=== PATIENT | female | born 1955 | race Caucasian/White ===

== ENCOUNTER 2020-12-05 21:01 | Emergency (ER) | payer MEDICARE, OTHER ==
[~2020-12-05] VITALS: Ht 167.6 cm; Wt 63.5 kg
--- NOTE | 2020-12-05 21:01 | NUR ---
Patient to ER bed 2 to gown for evaluation. Side rails up.
[2020-12-05 21:25] VITALS: BP_SYST 143
--- NOTE | 2020-12-05 21:28 | NUR ---
Dr. Rojas bedside for pt eval
[2020-12-05] MEDS ORDERED: HYDROcodone/ACETAMIN 5-325 MG TAB (NORCO/ VICODIN) PO ONE (21:30)
[2020-12-05] MEDS ORDERED: IBUPROFEN 800 MG TABLET PO ONE (21:30)
--- NOTE | 2020-12-05 21:30 | NUR ---
Pt BIB family to ED a puncture wound to the left big toe today. The patient reports she was doing yard work when she dropped her knife. States the knife cut through her plastic sandal onto her left big toe. Otherwise, denies fever, chills, numbness, weakness, or any other complaints.
[2020-12-05] MEDS ORDERED: DIPH-TET-PERTUS Vaccine 0.5 ML VIAL (ADACEL) I.M. ONE (21:45)
[2020-12-05] MEDS ORDERED: HYDR-3917 PO (21:56)
[2020-12-05] MEDS ORDERED: AMOX-423 PO (21:56)
[2020-12-05] MEDS ORDERED: BACITRACIN 1 GM OINT TP ONE (22:15)
[2020-12-05] MEDS ORDERED: AMOXICILLIN/CLAVULANATE POTASSIUM 500 MG TABLET PO ONE (22:15)
[2020-12-05 22:47] VITALS: BP_SYST 128
--- NOTE | 2020-12-05 22:47 | NUR ---
Patient given written and verbal discharge instructions and verbalizes understanding. ER MD discussed with patient the results and treatment provided. Patient in stable condition. ID arm band removed. Rx of Amoxicillin and [place] given. Patient educated on pain management and to follow up with PMD. Pain Scale 0/10 Opportunity for questions provided and answered. Medication side effect fact sheet provided.
== END 2020-12-05 22:47 | disposition home or self-care (01) ==
LOC: SED 21:01
DX: S91.132A Puncture wound without foreign body of left great toe without damage to nail, initial encounter (principal); E11.9 Type 2 diabetes mellitus without complications; Z88.5 Allergy status to narcotic agent; Z79.899 Other long term (current) drug therapy; W26.0XXA Contact with knife, initial encounter; Y93.89 Activity, other specified; Y92.89 Other specified places as the place of occurrence of the external cause; Y99.8 Other external cause status
CPT/HCPCS: 90715; 99284

== ENCOUNTER 2022-06-05 18:13 | Emergency (ER) | payer MEDICARE ==
[~2022-06-05] VITALS: Ht 165.1 cm; Wt 62.6 kg
[~2022-06-05 18:13] MED LIST: AMOX-423 PO; HYDR-3917 PO
[2022-06-05 18:19] VITALS: BP_SYST 122
[2022-06-05 18:42] LABS: BILIRUBIN,URINE NEGATIVE (NEGATIVE); CLARITY/URINE CLEAR (CLEAR); COLOR,URINE YELLOW (YELLOW); GLUCOSE,URINE 3+ (NEGATIVE); KETONES,URINE TRACE (NEGATIVE); LEUKOCYTE ESTERASE ,URINE NEGATIVE (NEGATIVE); NITRITE, URINE POSITIVE (NEGATIVE); PROTEIN URINE NEGATIVE (NEGATIVE); UROBILINOGEN,URINE 0.2 (0.2-1.0)
[2022-06-05 18:49] LABS: BLOOD, URINE TRACE (NEGATIVE)
[2022-06-05 18:54] LABS: BACTERIA,URINE MODERATE /HPF (None Seen); MUCUS,URINE None Seen /LPF (None Seen); RBC,URINE 0-3 /HPF (0-3); WBC,URINE 20-50 /HPF (0-3)
[2022-06-05] MEDS ORDERED: MECLIZINE HCL 25 MG TABLET (ANITVERT) PO ONE (19:00)
[2022-06-05] MEDS ORDERED: METOCLOPRAMIDE HCL 10 MG/2 ML VIAL IVP ONE (19:00)
[2022-06-05 19:26] LABS: BASOPHILS % (AUTO) 0.3 % (0.0-2.0); HEMATOCRIT 37.1 % (36-48); HEMOGLOBIN 12.6 g/dL (12.0-16.0); LYMPHOCYTES # (AUTO) 1.3 K/uL (1.0-5.5); LYMPHOCYTES % (AUTO) 9.1 % (20.5-51.5); MEAN CORPUSCULAR HEMOGLOBIN 31 pg (27-31); MEAN CORPUSCULAR HGB CONC 34 % (32-36); MEAN CORPUSCULAR VOLUME 90 fL (79.0-98.0); MONOCYTES % (AUTO) 6.6 % (1.7-9.3); NEUTROPHILS # (AUTO) 12.1 K/uL (1.8-7.7); PLATELET COUNT (AUTO) 242 K/uL (130-430); RED BLOOD CELL COUNT(AUTO) 4.13 MIL/uL (4.2-6.2); RED CELL DISTRIBUTION WIDTH 13.6 % (9.0-15.0); WHITE BLOOD COUNT (AUTO) 14.4 K/uL (4.8-10.8)
[2022-06-05 19:59] LABS: ANION GAP 12 (5-15); CALCIUM 9.2 mg/dL (8.4-11.0); CHLORIDE 93 mmol/L (98-107); CREATININE 0.82 mg/dL (0.55-1.30); GLUCOSE 181 mg/dL (70-99); UREA NITROGEN, BLOOD 10 mg/dL (8-21)
[2022-06-05 20:03] LABS: GFR AFRICAN AMERICAN 89 mL/min (>90)
[2022-06-05 20:07] LABS: ALANINE AMINOTRANSFERASE 20 U/L (12-78); ALBUMIN 3.4 g/dL (3.4-4.8); ASPARTATE AMINOTRANSFERASE 20 U/L (10-37); TOTAL BILIRUBIN 0.8 mg/dL (0.0-1.0)
[2022-06-05] MEDS ORDERED: IBUP-1969 PO (21:10)
[2022-06-05] MEDS ORDERED: MECL-261 PO (21:10)
[2022-06-05] MEDS ORDERED: NITR-85 PO (21:10)
[2022-06-05] MEDS ORDERED: cefTRIAXone 1 GM in D5W 50 ML IV ONE (21:15)
[2022-06-05] MEDS ORDERED: cefTRIAXone 1 GM VIAL ONE (21:18)
[2022-06-05 21:26] VITALS: BP_SYST 118
== END 2022-06-05 21:26 | disposition home or self-care (01) ==
LOC: SED 18:13
DX: N39.0 Urinary tract infection, site not specified (principal); R42 Dizziness and giddiness; R11.2 Nausea with vomiting, unspecified; E11.9 Type 2 diabetes mellitus without complications; I10 Essential (primary) hypertension; E78.5 Hyperlipidemia, unspecified; Z88.5 Allergy status to narcotic agent; Z79.899 Other long term (current) drug therapy
CPT/HCPCS: 99285; 96374; 70450; 71045; 80053; 81000; 85025; 87086; 84484; 36415; 93005; 76376; J8597; J0696; J2765

== ENCOUNTER 2022-10-25 14:50 | Inpatient (IN) | payer MEDICARE ==
[~2022-10-25] VITALS: Ht 167.6 cm; Wt 63.0 kg
[~2022-10-25 14:50] MED LIST changes: +IBUP-1969 PO; +MECL-261 PO; +NITR-85 PO
[2022-10-25 15:13] VITALS: BP_SYST 133
[2022-10-25 15:33] LABS: BILIRUBIN,URINE NEGATIVE (NEGATIVE); COLOR,URINE YELLOW (YELLOW); GLUCOSE,URINE 3+ (NEGATIVE); KETONES,URINE 1+ (NEGATIVE); NITRITE, URINE POSITIVE (NEGATIVE); PROTEIN URINE NEGATIVE (NEGATIVE); UROBILINOGEN,URINE 0.2 (0.2-1.0)
[2022-10-25 15:36] LABS: BASOPHILS # (AUTO) 0.1 K/uL (0.0-0.2); BASOPHILS % (AUTO) 0.3 % (0.0-2.0); HEMATOCRIT 37.9 % (36-48); HEMOGLOBIN 12.9 g/dL (12.0-16.0); LYMPHOCYTES # (AUTO) 1.2 K/uL (1.0-5.5); LYMPHOCYTES % (AUTO) 6.5 % (20.5-51.5); MEAN CORPUSCULAR HEMOGLOBIN 31 pg (27-31); MEAN CORPUSCULAR HGB CONC 34 % (32-36); MEAN CORPUSCULAR VOLUME 91 fL (79.0-98.0); MONOCYTES # (AUTO) 1.3 K/uL (0.0-1.0); MONOCYTES % (AUTO) 6.9 % (1.7-9.3); NEUTROPHILS # (AUTO) 16.7 K/uL (1.8-7.7); NEUTROPHILS % (AUTO) 86.3 % (40.0-70.0); PLATELET COUNT (AUTO) 213 K/uL (130-430); RED BLOOD CELL COUNT(AUTO) 4.18 MIL/uL (4.2-6.2); RED CELL DISTRIBUTION WIDTH 14.2 % (9.0-15.0); WHITE BLOOD COUNT (AUTO) 19.3 K/uL (4.8-10.8)
[2022-10-25 15:42] LABS: BLOOD, URINE TRACE (NEGATIVE); CLARITY/URINE HAZY (CLEAR); LEUKOCYTE ESTERASE ,URINE 2+ (NEGATIVE)
[2022-10-25 15:43] LABS: BACTERIA,URINE FEW /HPF (None Seen); MUCUS,URINE None Seen /LPF (None Seen); RBC,URINE 0-3 /HPF (0-3)
[2022-10-25 15:44] LABS: WBC,URINE 20-50 /HPF (0-3)
[2022-10-25 16:03] LABS: ALBUMIN 3.4 g/dL (3.4-4.8); CALCIUM 8.7 mg/dL (8.4-11.0); CREATININE 1.2 mg/dL (0.55-1.30); TOTAL BILIRUBIN 0.9 mg/dL (0.0-1.0)
[2022-10-25 16:11] LABS: C-REACTIVE PROTEIN QUANT 24.1 mg/dL (0-0.5)
[2022-10-25] MEDS ORDERED: INSULIN REGULAR, HUMAN 10 UNITS/0.1 ML, 3 ML VIAL IVP ONE (16:15)
[2022-10-25] MEDS ORDERED: NACL 0.9% 1,000 ML IV ONE (16:15)
[2022-10-25] MEDS ORDERED: cefTRIAXone 1 GM in D5W 50 ML IV ONE (16:15)
[2022-10-25] MEDS ORDERED: cefTRIAXone 1 GM VIAL ONE (16:19)
[2022-10-25] MEDS ORDERED: NACL 0.9% 2,000 ML IV ONE (16:30)
[2022-10-25] MEDS ORDERED: INSULIN REGULAR, HUMAN 100 UNITS/ML, 3 ML VIAL SUBCUT ONE (16:30)
[2022-10-25] MEDS ORDERED: EMPA25TA PO (17:43)
[2022-10-25] MEDS ORDERED: SEMA3TAB4 PO (17:43)
[2022-10-25] MEDS ORDERED: METF-381 PO (17:43)
[2022-10-25] MEDS ORDERED: GLIP10TA11 PO (17:43)
[2022-10-25] MEDS ORDERED: PIPERACILLIN/TAZO 3.375/DEX-IS 50 ML IV ONE (18:00)
[2022-10-25] MEDS ORDERED: PIPERACILLIN/TAZOBACTAM 3.375 GM/VIAL (ZOSYN) IV ONE (18:07)
[2022-10-25 18:42] VITALS: BP_SYST 136
[2022-10-25 20:00] VITALS: BP_SYST 132
[2022-10-25] MEDS: ACETAMINOPHEN 325 MG TABLET PO PRN (20:23)
[2022-10-25] MEDS ORDERED: IBUPROFEN 600 MG TABLET PO PRN (22:15)
[2022-10-25] MEDS ORDERED: NALOXONE HCL 0.4 MG/ML AMP (NARCAN) IVP PRN (22:15)
[2022-10-25] MEDS ORDERED: HYDROcodone/ACETAMIN 5-325 MG TAB (NORCO/ VICODIN) PO PRN (22:15)
[2022-10-25] MEDS ORDERED: ONDANSETRON HCL 4 MG/2 ML VIAL IVP PRN (22:30)
[2022-10-25] MEDS: NACL 0.9% 1,000 ML IV SCH (22:49)
[2022-10-26] MEDS ORDERED: PIPERACILLIN/TAZO 3.375/DEX-IS 50 ML IV SCH
[2022-10-26 00:28] VITALS: BP_SYST 109
[2022-10-26] MEDS: PIPERACILLIN/TAZO 3.375 GM in NS 50 ML IV SCH ×4 (00:34→19:01)
[2022-10-26] MEDS: ACETAMINOPHEN 325 MG TABLET PO PRN ×2 (00:50→06:57)
[2022-10-26 06:06] LABS: BASOPHILS # (AUTO) 0.1 K/uL (0.0-0.2); BASOPHILS % (AUTO) 0.4 % (0.0-2.0); EOSINOPHILS % (AUTO) 0.1 % (0.0-4.0); HEMATOCRIT 37.1 % (36-48); HEMOGLOBIN 12.4 g/dL (12.0-16.0); MEAN CORPUSCULAR HEMOGLOBIN 30 pg (27-31); MEAN CORPUSCULAR HGB CONC 34 % (32-36); MEAN CORPUSCULAR VOLUME 91 fL (79.0-98.0); MONOCYTES # (AUTO) 1.2 K/uL (0.0-1.0); MONOCYTES % (AUTO) 6.6 % (1.7-9.3); NEUTROPHILS % (AUTO) 81.9 % (40.0-70.0); PLATELET COUNT (AUTO) 200 K/uL (130-430); RED BLOOD CELL COUNT(AUTO) 4.08 MIL/uL (4.2-6.2); RED CELL DISTRIBUTION WIDTH 13.8 % (9.0-15.0); WHITE BLOOD COUNT (AUTO) 18.4 K/uL (4.8-10.8)
[2022-10-26 06:27] LABS: CALCIUM 8.3 mg/dL (8.4-11.0); CREATININE 0.91 mg/dL (0.55-1.30); THYROID STIMULATING HORMONE 0.81 uIu/mL (0.34-4.82); TOTAL BILIRUBIN 0.7 mg/dL (0.0-1.0)
[2022-10-26 08:10] VITALS: BP_SYST 97
[2022-10-26] MEDS: NACL 0.9% 1,000 ML IV SCH ×2 (08:26→18:52)
[2022-10-26] MEDS: metFORMIN HCL 500 MG TABLET PO SCH ×2 (08:26→18:53)
[2022-10-26] MEDS: traMADol HCL HCL 50 MG TABLET (ULTRAM) PO PRN ×2 (09:14→18:53)
[2022-10-26] MEDS: EMPAGLIFLOZIN 10 MG TABLET PO SCH (11:50)
[2022-10-26] MEDS: INSULIN REGULAR, HUMAN 100 UNITS/ML, 3 ML VIAL (humuLIN R) SUBCUT PRN ×3 (11:59→22:02)
[2022-10-26 12:00] VITALS: BP_SYST 125
[2022-10-26] MEDS ORDERED: GENTAMICIN IN NACL, ISO-OSM 100 ML IV ONE (13:00)
[2022-10-27] MEDS: PIPERACILLIN/TAZO 3.375 GM in NS 50 ML IV SCH ×5 (01:02→23:16)
[2022-10-27 01:54] VITALS: BP_SYST 116
[2022-10-27] MEDS: NACL 0.9% 1,000 ML IV SCH ×2 (04:30→15:22)
[2022-10-27] MEDS: traMADol HCL HCL 50 MG TABLET (ULTRAM) PO PRN ×3 (05:42→20:53)
[2022-10-27 06:01] LABS: BASOPHILS % (AUTO) 0.2 % (0.0-2.0); EOSINOPHILS % (AUTO) 0.4 % (0.0-4.0); HEMATOCRIT 33.5 % (36-48); HEMOGLOBIN 11.6 g/dL (12.0-16.0); LYMPHOCYTES # (AUTO) 1.9 K/uL (1.0-5.5); LYMPHOCYTES % (AUTO) 17.6 % (20.5-51.5); MEAN CORPUSCULAR HEMOGLOBIN 31 pg (27-31); MEAN CORPUSCULAR HGB CONC 35 % (32-36); MEAN CORPUSCULAR VOLUME 90 fL (79.0-98.0); MONOCYTES # (AUTO) 0.8 K/uL (0.0-1.0); MONOCYTES % (AUTO) 7.8 % (1.7-9.3); PLATELET COUNT (AUTO) 203 K/uL (130-430); RED BLOOD CELL COUNT(AUTO) 3.71 MIL/uL (4.2-6.2); RED CELL DISTRIBUTION WIDTH 14.1 % (9.0-15.0); WHITE BLOOD COUNT (AUTO) 10.8 K/uL (4.8-10.8)
[2022-10-27 06:39] LABS: ALBUMIN 2.5 g/dL (3.4-4.8); CREATININE 0.75 mg/dL (0.55-1.30); TOTAL BILIRUBIN 0.5 mg/dL (0.0-1.0)
[2022-10-27 08:00] VITALS: BP_SYST 142
[2022-10-27] MEDS: EMPAGLIFLOZIN 10 MG TABLET PO SCH (09:51)
[2022-10-27] MEDS: metFORMIN HCL 500 MG TABLET PO SCH ×2 (09:52→17:05)
[2022-10-27 14:00] VITALS: BP_SYST 134
[2022-10-27 16:00] VITALS: BP_SYST 134
[2022-10-27] MEDS ORDERED: POTASSIUM CHLORIDE 20 MEQ TAB.PRT.SR PO ONE (17:15)
[2022-10-27 20:00] VITALS: BP_SYST 137
[2022-10-27] MEDS: INSULIN REGULAR, HUMAN 100 UNITS/ML, 3 ML VIAL (humuLIN R) SUBCUT PRN (20:19)
[2022-10-28 02:03] VITALS: BP_SYST 142
[2022-10-28] MEDS: PIPERACILLIN/TAZO 3.375 GM in NS 50 ML IV SCH ×5 (05:33→23:44)
[2022-10-28] MEDS: traMADol HCL HCL 50 MG TABLET (ULTRAM) PO PRN (05:48)
[2022-10-28 05:57] LABS: BASOPHILS % (AUTO) 0.6 % (0.0-2.0); EOSINOPHILS # (AUTO) 0.1 K/uL (0.0-0.4); HEMATOCRIT 33.7 % (36-48); HEMOGLOBIN 11.5 g/dL (12.0-16.0); LYMPHOCYTES # (AUTO) 1.4 K/uL (1.0-5.5); LYMPHOCYTES % (AUTO) 23.4 % (20.5-51.5); MEAN CORPUSCULAR HEMOGLOBIN 31 pg (27-31); MEAN CORPUSCULAR HGB CONC 34 % (32-36); MEAN CORPUSCULAR VOLUME 91 fL (79.0-98.0); MONOCYTES # (AUTO) 0.7 K/uL (0.0-1.0); MONOCYTES % (AUTO) 11.2 % (1.7-9.3); NEUTROPHILS # (AUTO) 3.9 K/uL (1.8-7.7); NEUTROPHILS % (AUTO) 63.8 % (40.0-70.0); PLATELET COUNT (AUTO) 222 K/uL (130-430); RED BLOOD CELL COUNT(AUTO) 3.72 MIL/uL (4.2-6.2); RED CELL DISTRIBUTION WIDTH 13.9 % (9.0-15.0)
[2022-10-28 06:17] LABS: CALCIUM 8.1 mg/dL (8.4-11.0); CREATININE 0.76 mg/dL (0.55-1.30)
[2022-10-28 06:54] LABS: ERYTHROCYTE SEDIMENTATION RATE 72 MM/HR (0-20)
[2022-10-28 08:00] VITALS: BP_SYST 131
[2022-10-28] MEDS: metFORMIN HCL 500 MG TABLET PO SCH ×2 (08:52→17:24)
[2022-10-28] MEDS: EMPAGLIFLOZIN 10 MG TABLET PO SCH (08:54)
[2022-10-28 12:00] VITALS: BP_SYST 131
[2022-10-28 16:30] VITALS: BP_SYST 136
[2022-10-28 20:00] VITALS: BP_SYST 136
[2022-10-28] MEDS: INSULIN REGULAR, HUMAN 100 UNITS/ML, 3 ML VIAL (humuLIN R) SUBCUT PRN (22:10)
[2022-10-29 01:56] VITALS: BP_SYST 110; BP_SYST 132
[2022-10-29] MEDS: PIPERACILLIN/TAZO 3.375 GM in NS 50 ML IV SCH ×4 (05:53→23:50)
[2022-10-29] MEDS: ACETAMINOPHEN 325 MG TABLET PO PRN (05:53)
[2022-10-29 07:51] VITALS: BP_SYST 115
[2022-10-29] MEDS: metFORMIN HCL 500 MG TABLET PO SCH ×2 (08:00→17:02)
[2022-10-29] MEDS: EMPAGLIFLOZIN 10 MG TABLET PO SCH (11:17)
[2022-10-29] MEDS: INSULIN REGULAR, HUMAN 100 UNITS/ML, 3 ML VIAL (humuLIN R) SUBCUT PRN ×3 (11:31→20:34)
[2022-10-29 13:04] VITALS: BP_SYST 122
[2022-10-29 15:07] LABS: HEPATITIS A AB, IgM Negative (Negative); HEPATITIS B CORE AB, IgM Negative (Negative); HEPATITIS B SURFACE AG Negative (Negative)
[2022-10-29 17:10] VITALS: BP_SYST 143
[2022-10-29 20:15] VITALS: BP_SYST 123
[2022-10-30 00:25] VITALS: BP_SYST 133
[2022-10-30 05:31] LABS: BASOPHILS % (AUTO) 0.5 % (0.0-2.0); EOSINOPHILS # (AUTO) 0.1 K/uL (0.0-0.4); EOSINOPHILS % (AUTO) 1.2 % (0.0-4.0); HEMOGLOBIN 12.3 g/dL (12.0-16.0); LYMPHOCYTES # (AUTO) 1.9 K/uL (1.0-5.5); LYMPHOCYTES % (AUTO) 30.1 % (20.5-51.5); MEAN CORPUSCULAR HEMOGLOBIN 31 pg (27-31); MEAN CORPUSCULAR HGB CONC 34 % (32-36); MEAN CORPUSCULAR VOLUME 90 fL (79.0-98.0); MONOCYTES # (AUTO) 0.7 K/uL (0.0-1.0); MONOCYTES % (AUTO) 11.4 % (1.7-9.3); NEUTROPHILS # (AUTO) 3.6 K/uL (1.8-7.7); NEUTROPHILS % (AUTO) 56.8 % (40.0-70.0); PLATELET COUNT (AUTO) 285 K/uL (130-430); RED BLOOD CELL COUNT(AUTO) 4.02 MIL/uL (4.2-6.2); RED CELL DISTRIBUTION WIDTH 14.1 % (9.0-15.0); WHITE BLOOD COUNT (AUTO) 6.3 K/uL (4.8-10.8)
[2022-10-30] MEDS: PIPERACILLIN/TAZO 3.375 GM in NS 50 ML IV SCH (05:53)
[2022-10-30 05:59] LABS: CREATININE 0.86 mg/dL (0.55-1.30)
[2022-10-30 08:00] VITALS: BP_SYST 139
[2022-10-30] MEDS: metFORMIN HCL 500 MG TABLET PO SCH ×2 (09:06→17:33)
[2022-10-30] MEDS: EMPAGLIFLOZIN 10 MG TABLET PO SCH (09:07)
[2022-10-30 12:00] VITALS: BP_SYST 141
[2022-10-30] MEDS: INSULIN REGULAR, HUMAN 100 UNITS/ML, 3 ML VIAL (humuLIN R) SUBCUT PRN ×2 (12:28→21:29)
[2022-10-30 16:41] VITALS: BP_SYST 140
[2022-10-30] MEDS: cefTRIAXone 2 GM IVPB PREMIX 50 ML IV SCH (17:33)
[2022-10-30 20:00] VITALS: BP_SYST 133
[2022-10-31] VITALS: BP_SYST 123
[2022-10-31 09:52] VITALS: BP_SYST 139
[2022-10-31] MEDS: metFORMIN HCL 500 MG TABLET PO SCH (09:54)
[2022-10-31] MEDS: EMPAGLIFLOZIN 10 MG TABLET PO SCH (09:54)
[2022-10-31 11:53] VITALS: BP_SYST 134
[2022-10-31] MEDS: INSULIN REGULAR, HUMAN 100 UNITS/ML, 3 ML VIAL (humuLIN R) SUBCUT PRN (12:23)
[2022-10-31 15:54] VITALS: BP_SYST 134
[2022-10-31] MEDS: cefTRIAXone 2 GM IVPB PREMIX 50 ML IV SCH (16:51)
[2022-10-31 17:36] VITALS: BP_SYST 132
== END 2022-10-31 18:24 | disposition home health service (06) | DRG 871 ==
LOC: SED 14:50 → STU 16:30 → SMU 10-27 17:24
PROVIDERS: ADMIT Internal Medicine; ATTEND Internal Medicine
DX: A41.9 Sepsis, unspecified organism (principal); J69.0 Pneumonitis due to inhalation of food and vomit; E44.1 Mild protein-calorie malnutrition; E87.1 Hypo-osmolality and hyponatremia; N12 Tubulo-interstitial nephritis, not specified as acute or chronic; Z68.22 Body mass index [BMI] 22.0-22.9, adult; E11.9 Type 2 diabetes mellitus without complications; B96.20 Unspecified Escherichia coli [E. coli] as the cause of diseases classified elsewhere; J20.9 Acute bronchitis, unspecified; R91.1 Solitary pulmonary nodule; N81.4 Uterovaginal prolapse, unspecified; Z88.5 Allergy status to narcotic agent
CPT/HCPCS: 36415; 70450-TC; 70551; 71045; 71250-TC; 76376; 80048; 80053; 80061; 80074; 81000; 82150; 82962; 83037; 83605; 83690; 83735; 84100; 84439; 84443; 85025; 85651-TC; 86140; 86480; 87040; 87086; 87116; 96365; 99285; G0378; J0696; J1580; J1815; J2543

== ENCOUNTER 2022-11-19 15:04 | Inpatient (IN) | payer MEDICARE ==
[~2022-11-19] VITALS: Ht 162.6 cm; Wt 55.8 kg
[~2022-11-19 15:04] MED LIST changes: -AMOX-423 PO; +EMPA25TA PO; +GLIP10TA11 PO; +METF-381 PO; -NITR-85 PO; +SEMA3TAB4 PO
[2022-11-19 15:36] VITALS: BP_SYST 119; PULSE 74; RESP 18; TEMP 98.3; O2SAT 100
[2022-11-19] MEDS ORDERED: METOCLOPRAMIDE HCL 10 MG/2 ML VIAL IM ONE (16:15)
[2022-11-19] MEDS ORDERED: KETOROLAC TROMETHAMINE 30 MG VIAL IM ONE (16:15)
[2022-11-19 16:43] LABS: CALCIUM 9.1 mg/dL (8.4-11.0); CREATININE 0.89 mg/dL (0.55-1.30)
[2022-11-19 16:47] LABS: ALBUMIN 3.4 g/dL (3.4-4.8); TOTAL BILIRUBIN 0.5 mg/dL (0.0-1.0)
[2022-11-19 16:52] LABS: BILIRUBIN,URINE NEGATIVE (NEGATIVE); COLOR,URINE YELLOW (YELLOW); GLUCOSE,URINE 3+ (NEGATIVE); KETONES,URINE NEGATIVE (NEGATIVE); LEUKOCYTE ESTERASE ,URINE 1+ (NEGATIVE); NITRITE, URINE NEGATIVE (NEGATIVE); PH,URINE 6.5 (5.0-8.0); PROTEIN URINE NEGATIVE (NEGATIVE); UROBILINOGEN,URINE 0.2 (0.2-1.0)
[2022-11-19 16:54] LABS: BASOPHILS % (AUTO) 0.3 % (0.0-2.0); HEMATOCRIT 37.9 % (36-48); HEMOGLOBIN 12.5 g/dL (12.0-16.0); LYMPHOCYTES # (AUTO) 2.1 K/uL (1.0-5.5); LYMPHOCYTES % (AUTO) 17.5 % (20.5-51.5); MEAN CORPUSCULAR HEMOGLOBIN 30 pg (27-31); MEAN CORPUSCULAR HGB CONC 33 % (32-36); MEAN CORPUSCULAR VOLUME 90 fL (79.0-98.0); MONOCYTES # (AUTO) 1.2 K/uL (0.0-1.0); MONOCYTES % (AUTO) 10.1 % (1.7-9.3); NEUTROPHILS # (AUTO) 8.8 K/uL (1.8-7.7); NEUTROPHILS % (AUTO) 72.1 % (40.0-70.0); PLATELET COUNT (AUTO) 228 K/uL (130-430); RED CELL DISTRIBUTION WIDTH 14.4 % (9.0-15.0); WHITE BLOOD COUNT (AUTO) 12.2 K/uL (4.8-10.8)
[2022-11-19 16:57] LABS: BLOOD, URINE TRACE (NEGATIVE)
[2022-11-19 16:59] LABS: CLARITY/URINE HAZY (CLEAR)
[2022-11-19 17:02] LABS: BACTERIA,URINE MODERATE /HPF (None Seen); MUCUS,URINE None Seen /LPF (None Seen); RBC,URINE 0-3 /HPF (0-3); WBC,URINE >100 /HPF (0-3)
[2022-11-19] MEDS ORDERED: ACETAMINOPHEN 325 MG TABLET PO ONE (17:45)
[2022-11-19] MEDS ORDERED: DIPHENHYDRAMINE INJ 50 MG/ML VIAL IVP ONE (18:15)
[2022-11-19] MEDS ORDERED: METOCLOPRAMIDE HCL 10 MG/2 ML VIAL IVP ONE (18:15)
[2022-11-19] MEDS ORDERED: NACL 0.9% 1,000 ML IV ONE (18:15)
[2022-11-19] MEDS ORDERED: DEXTROSE 50% JECT 50 ML DISP.SYRIN IVP PRN (18:30)
[2022-11-19] MEDS ORDERED: INSULIN REGULAR, HUMAN 100 UNITS/ML, 3 ML VIAL (humuLIN R) SUBCUT PRN (18:30)
[2022-11-19] MEDS ORDERED: NALOXONE HCL 0.4 MG/ML AMP (NARCAN) IVP PRN (18:45)
[2022-11-19] MEDS ORDERED: HYDROcodone/ACETAMIN 5-325 MG TAB (NORCO/ VICODIN) PO PRN (18:45)
[2022-11-19] MEDS ORDERED: cefTRIAXone 2 GM VIAL ONE (19:45)
[2022-11-19] MEDS ORDERED: TEMAZEPAM 15 MG CAPSULE PO PRN (20:30)
[2022-11-19] MEDS ORDERED: ONDANSETRON HCL 4 MG/2 ML VIAL IVP PRN (20:30)
[2022-11-19 20:38] VITALS: BP_SYST 113; PULSE 84; RESP 17; TEMP 97.3
[2022-11-19] MEDS ORDERED: CIPROFLOXACIN LACT 400 MG/D5W 200 ML IV ONE (22:06)
[2022-11-19 22:20] VITALS: BP_SYST 113; PULSE 84; RESP 17; TEMP 97.3; O2SAT 98
[2022-11-19] MEDS: CIPROFLOXACIN LACT 400 MG/D5W 200 ML IV SCH (22:24)
[2022-11-20] VITALS: BP_SYST 118; PULSE 88; RESP 17; TEMP 97.8; O2SAT 97
[2022-11-20 04:20] VITALS: BP_SYST 120; PULSE 151; RESP 20; TEMP 100; O2SAT 93
[2022-11-20] MEDS: ACETAMINOPHEN 325 MG TABLET PO PRN ×2 (04:21→15:56)
[2022-11-20 04:34] LABS: BASOPHILS % (AUTO) 0.4 % (0.0-2.0); EOSINOPHILS % (AUTO) 0.3 % (0.0-4.0); HEMATOCRIT 33.8 % (36-48); HEMOGLOBIN 10.9 g/dL (12.0-16.0); LYMPHOCYTES # (AUTO) 1.9 K/uL (1.0-5.5); LYMPHOCYTES % (AUTO) 15.5 % (20.5-51.5); MEAN CORPUSCULAR HEMOGLOBIN 29 pg (27-31); MEAN CORPUSCULAR HGB CONC 32 % (32-36); MEAN CORPUSCULAR VOLUME 91 fL (79.0-98.0); MONOCYTES # (AUTO) 1.4 K/uL (0.0-1.0); MONOCYTES % (AUTO) 11.5 % (1.7-9.3); NEUTROPHILS # (AUTO) 8.7 K/uL (1.8-7.7); NEUTROPHILS % (AUTO) 72.3 % (40.0-70.0); PLATELET COUNT (AUTO) 204 K/uL (130-430); RED BLOOD CELL COUNT(AUTO) 3.72 MIL/uL (4.2-6.2); RED CELL DISTRIBUTION WIDTH 14.1 % (9.0-15.0); WHITE BLOOD COUNT (AUTO) 12.1 K/uL (4.8-10.8)
[2022-11-20] MEDS: IBUPROFEN 600 MG TABLET PO PRN ×2 (06:41→19:28)
[2022-11-20 09:17] VITALS: BP_SYST 103; PULSE 93; RESP 16; TEMP 97.8; O2SAT 94
[2022-11-20 09:21] LABS: CALCIUM 8.5 mg/dL (8.4-11.0); CREATININE 0.94 mg/dL (0.55-1.30)
[2022-11-20] MEDS: CIPROFLOXACIN LACT 400 MG/D5W 200 ML IV SCH ×2 (10:22→21:00)
[2022-11-20 11:57] VITALS: BP_SYST 99; PULSE 96; RESP 17; TEMP 97.6; O2SAT 99
[2022-11-20] MEDS ORDERED: DEXTROSE 50% JECT 50 ML DISP.SYRIN IVP PRN (12:30)
[2022-11-20 17:33] VITALS: BP_SYST 120; PULSE 95; RESP 17; TEMP 98.1; O2SAT 98
[2022-11-20 20:00] VITALS: BP_SYST 108; PULSE 91; RESP 17; TEMP 98; O2SAT 97
[2022-11-20] MEDS: INSULIN REGULAR, HUMAN 100 UNITS/ML, 3 ML VIAL (humuLIN R) SUBCUT PRN (22:02)
[2022-11-21] VITALS: BP_SYST 107; PULSE 86; RESP 18; TEMP 97.2; O2SAT 95
[2022-11-21 03:48] VITALS: O2SAT 96
[2022-11-21] MEDS: ACETAMINOPHEN 325 MG TABLET PO PRN ×2 (05:32→18:32)
[2022-11-21] MEDS: metFORMIN HCL 500 MG TABLET PO SCH ×2 (08:36→21:53)
[2022-11-21] MEDS: CIPROFLOXACIN LACT 400 MG/D5W 200 ML IV SCH (08:37)
[2022-11-21 08:38] VITALS: BP_SYST 100; PULSE 90; RESP 16; TEMP 98.6; O2SAT 97
[2022-11-21] MEDS: INSULIN REGULAR, HUMAN 100 UNITS/ML, 3 ML VIAL (humuLIN R) SUBCUT PRN ×2 (11:34→22:26)
[2022-11-21] MEDS ORDERED: PIPERACILLIN/TAZO 4.5GM/DEX-IS 100 ML IV SCH (12:00)
[2022-11-21] MEDS ORDERED: LACT1CAP69 PO (12:07)
[2022-11-21 12:45] VITALS: BP_SYST 105; PULSE 87; RESP 17; TEMP 98.2; O2SAT 97
[2022-11-21] MEDS ORDERED: AMPICILLIN SODIUM/SULBACTAM NA 3 GM in NS 100 ML IV ONE (13:00)
[2022-11-21 16:00] VITALS: BP_SYST 101; PULSE 89; RESP 16; TEMP 98.4; O2SAT 97
[2022-11-21] MEDS ORDERED: AMPICILLIN SODIUM/SULBACTAM NA 3 GM in NS 100 ML IV SCH (18:00)
[2022-11-21] MEDS: ERTAPENEM SODIUM 1 GM in NS 50 ML IV SCH (18:25)
[2022-11-21 20:00] VITALS: BP_SYST 123; PULSE 89; RESP 18; TEMP 96.5; O2SAT 100
[2022-11-22 01:19] VITALS: BP_SYST 127; PULSE 80; RESP 16; TEMP 97.8; O2SAT 98
[2022-11-22] MEDS: ACETAMINOPHEN 325 MG TABLET PO PRN (06:30)
[2022-11-22 08:00] VITALS: BP_SYST 110; PULSE 87; RESP 16; TEMP 97.9; O2SAT 99
[2022-11-22] MEDS: metFORMIN HCL 500 MG TABLET PO SCH (08:32)
[2022-11-22 11:00] VITALS: O2SAT 99
[2022-11-22 12:00] VITALS: BP_SYST 125; PULSE 85; RESP 17; TEMP 97.1; O2SAT 97
[2022-11-22 12:27] LABS: INR 1.1 (0.8-1.2); PROTHROMBIN TIME 11.1 SECS (9.5-12.5)
[2022-11-22 15:15] LABS: BASOPHILS # (AUTO) 0.1 K/uL (0.0-0.2); BASOPHILS % (AUTO) 0.8 % (0.0-2.0); EOSINOPHILS # (AUTO) 0.1 K/uL (0.0-0.4); EOSINOPHILS % (AUTO) 0.8 % (0.0-4.0); HEMATOCRIT 36.3 % (36-48); HEMOGLOBIN 12.1 g/dL (12.0-16.0); LYMPHOCYTES # (AUTO) 2.5 K/uL (1.0-5.5); LYMPHOCYTES % (AUTO) 27.2 % (20.5-51.5); MEAN CORPUSCULAR HEMOGLOBIN 30 pg (27-31); MEAN CORPUSCULAR HGB CONC 34 % (32-36); MEAN CORPUSCULAR VOLUME 89 fL (79.0-98.0); MONOCYTES # (AUTO) 0.9 K/uL (0.0-1.0); MONOCYTES % (AUTO) 9.8 % (1.7-9.3); NEUTROPHILS # (AUTO) 5.7 K/uL (1.8-7.7); NEUTROPHILS % (AUTO) 61.4 % (40.0-70.0); PLATELET COUNT (AUTO) 278 K/uL (130-430); RED BLOOD CELL COUNT(AUTO) 4.07 MIL/uL (4.2-6.2); RED CELL DISTRIBUTION WIDTH 14.6 % (9.0-15.0); WHITE BLOOD COUNT (AUTO) 9.3 K/uL (4.8-10.8)
[2022-11-22 15:25] LABS: CALCIUM 8.7 mg/dL (8.4-11.0); CREATININE 0.84 mg/dL (0.55-1.30)
[2022-11-22 16:49] VITALS: BP_SYST 117; PULSE 86; RESP 16; TEMP 97.5; O2SAT 98
[2022-11-22] MEDS: ERTAPENEM SODIUM 1 GM in NS 50 ML IV SCH (17:14)
[2022-11-22] MEDS: INSULIN REGULAR, HUMAN 100 UNITS/ML, 3 ML VIAL (humuLIN R) SUBCUT PRN (17:28)
[2022-11-22 19:44] VITALS: BP_SYST 117; PULSE 86; RESP 16; TEMP 97.5; O2SAT 98
== END 2022-11-22 20:00 | disposition home health service (06) | DRG 872 ==
LOC: SED 15:04 → SMU 18:11 → STU 19:58 → SMU 11-20 22:49
PROVIDERS: ADMIT Internal Medicine; ATTEND Internal Medicine
DX: A41.9 Sepsis, unspecified organism (principal); N12 Tubulo-interstitial nephritis, not specified as acute or chronic; E11.9 Type 2 diabetes mellitus without complications; I10 Essential (primary) hypertension; J47.9 Bronchiectasis, uncomplicated; B96.20 Unspecified Escherichia coli [E. coli] as the cause of diseases classified elsewhere; Z88.5 Allergy status to narcotic agent; Z79.899 Other long term (current) drug therapy
CPT/HCPCS: 36415; 71045; 80048; 80053; 81000; 83605; 84484; 85025; 85610-TC; 85730-TC; 87040; 87086; 93005; 96361; 96372; 96374; 96375; 99285; G0378; J0295; J0696; J0744; J1200; J1335; J1885; J2765; J7030

== ENCOUNTER 2022-11-25 10:53 | Emergency (ER) | payer MEDICARE ==
[~2022-11-25] VITALS: Ht 160 cm; Wt 68.0 kg
[~2022-11-25 10:53] MED LIST changes: -EMPA25TA PO; -GLIP10TA11 PO; -HYDR-3917 PO; -IBUP-1969 PO; +LACT1CAP69 PO; -MECL-261 PO; -SEMA3TAB4 PO
--- NOTE | 2022-11-25 11:05 | NUR ---
PT BIB SON AWAKE AND ALERT AOX4, NO SOB. PT WAS HERE X3 DAYS AGO FOR UTI. PT HAD A PIC LINE. HOME HEALTH NURSE CAME BY HER HOUSE TO DO DRESSING CHANGE, AND THE PIC LINE STARTED TO LEAK. PT DENIES PAIN. PT HAS HX OF HTN, AND DM2.
--- NOTE | 2022-11-25 11:06 | NUR ---
MD DR MIRELES AT BEDSIDE
[2022-11-25 11:11] VITALS: BP_SYST 142; PULSE 92; RESP 17; TEMP 97.6; O2SAT 99
--- NOTE | 2022-11-25 14:36 | NUR ---
Patient to ER bed 5 to gown for evaluation. Side rails up. PICC LINE RN IN ROOM
--- NOTE | 2022-11-25 15:56 | NUR ---
Midline Nurse Nneka midline insertion successful MD Made aware
--- NOTE | 2022-11-25 16:12 | NUR ---
Pt resting comfortably in bed AOX4 VSS Able to make needs known Will continue to monitor
[2022-11-25 16:41] VITALS: BP_SYST 144; PULSE 81; RESP 18; TEMP 97.6; O2SAT 99
--- NOTE | 2022-11-25 16:41 | NUR ---
Patient given written and verbal discharge instructions and verbalizes understanding. ER MD discussed with patient the results and treatment provided. Patient in stable condition. ID arm band removed.
== END 2022-11-25 16:42 | disposition home or self-care (01) ==
LOC: SED 10:53
DX: T82.534A Leakage of infusion catheter, initial encounter (principal); E11.9 Type 2 diabetes mellitus without complications; I10 Essential (primary) hypertension; E78.5 Hyperlipidemia, unspecified; Z88.5 Allergy status to narcotic agent; Z79.899 Other long term (current) drug therapy
CPT/HCPCS: 36569; 99285; 71045; C1751

== ENCOUNTER 2023-03-02 20:45 | Emergency (ER) | payer MEDICARE ==
[~2023-03-02] VITALS: Ht 160 cm; Wt 59.4 kg
[2023-03-02 20:51] VITALS: BP_SYST 147; PULSE 91; RESP 18; TEMP 97.3; O2SAT 98
[2023-03-02 21:29] LABS: BASOPHILS % (AUTO) 0.4 % (0.0-2.0); EOSINOPHILS % (AUTO) 0.4 % (0.0-4.0); HEMATOCRIT 36.4 % (36-48); HEMOGLOBIN 11.9 g/dL (12.0-16.0); LYMPHOCYTES # (AUTO) 1.8 K/uL (1.0-5.5); LYMPHOCYTES % (AUTO) 15.9 % (20.5-51.5); MEAN CORPUSCULAR HEMOGLOBIN 29 pg (27-31); MEAN CORPUSCULAR HGB CONC 33 % (32-36); MEAN CORPUSCULAR VOLUME 89 fL (79.0-98.0); MONOCYTES # (AUTO) 0.8 K/uL (0.0-1.0); MONOCYTES % (AUTO) 7.3 % (1.7-9.3); NEUTROPHILS # (AUTO) 8.5 K/uL (1.8-7.7); PLATELET COUNT (AUTO) 344 K/uL (130-430); RED BLOOD CELL COUNT(AUTO) 4.08 MIL/uL (4.2-6.2); RED CELL DISTRIBUTION WIDTH 13.3 % (9.0-15.0); WHITE BLOOD COUNT (AUTO) 11.2 K/uL (4.8-10.8)
[2023-03-02 21:43] LABS: CALCIUM 9.2 mg/dL (8.4-11.0); CREATININE 0.95 mg/dL (0.55-1.30); POTASSIUM 4.1 mmol/L (3.5-5.1)
[2023-03-02 21:47] LABS: ALBUMIN 3.4 g/dL (3.4-4.8); TOTAL BILIRUBIN 0.4 mg/dL (0.0-1.0); TOTAL PROTEIN, SERUM 8.2 g/dL (6.4-8.3)
[2023-03-02 21:56] LABS: BILIRUBIN,URINE NEGATIVE (NEGATIVE); BLOOD, URINE NEGATIVE (NEGATIVE); COLOR,URINE YELLOW (YELLOW); GLUCOSE,URINE 3+ (NEGATIVE); KETONES,URINE NEGATIVE (NEGATIVE); NITRITE, URINE NEGATIVE (NEGATIVE); PH,URINE 5.5 (5.0-8.0); PROTEIN URINE NEGATIVE (NEGATIVE); UROBILINOGEN,URINE 0.2 (0.2-1.0)
[2023-03-02 22:02] LABS: CLARITY/URINE HAZY (CLEAR); LEUKOCYTE ESTERASE ,URINE 1+ (NEGATIVE)
[2023-03-02 22:03] LABS: BACTERIA,URINE MODERATE /HPF (None Seen); MUCUS,URINE None Seen /LPF (None Seen); RBC,URINE 0-3 /HPF (0-3)
[2023-03-02] MEDS ORDERED: NACL 0.9% 1,000 ML IV ONE (22:15)
[2023-03-02] MEDS ORDERED: KETOROLAC TROMETHAMINE 30 MG VIAL IVP ONE (22:15)
[2023-03-02] MEDS ORDERED: cefTRIAXone 1 GM IVPB PREMIX 50 ML IV ONE (22:15)
[2023-03-02] MEDS ORDERED: ACETAMINOPHEN 500 MG TABLET PO ONE (23:00)
[2023-03-03] MEDS ORDERED: CIPR500T5 PO (00:11)
[2023-03-03] MEDS ORDERED: NAPR-1172 PO (00:11)
[2023-03-03 00:30] VITALS: BP_SYST 129; PULSE 83; RESP 20; TEMP 97.7; O2SAT 99
== END 2023-03-03 00:30 | disposition home or self-care (01) ==
LOC: SED 20:45
DX: K59.00 Constipation, unspecified (principal); N12 Tubulo-interstitial nephritis, not specified as acute or chronic; R10.9 Unspecified abdominal pain; E11.9 Type 2 diabetes mellitus without complications; I10 Essential (primary) hypertension; E78.5 Hyperlipidemia, unspecified; Z88.5 Allergy status to narcotic agent; Z79.899 Other long term (current) drug therapy
CPT/HCPCS: 99285; 74176; 96365; 96375; 80053; 81000; 82962; 83690; 85025; 87040; 87086; 36415; 76376; 83605; J0696; J1885

== ENCOUNTER 2023-04-22 21:16 | Emergency (ER) | payer MEDICARE ==
[~2023-04-22] VITALS: Ht 162.6 cm; Wt 59.9 kg
[~2023-04-22 21:16] MED LIST changes: +CIPR500T5 PO; +NAPR-1172 PO
[2023-04-22 21:20] VITALS: BP_SYST 147; PULSE 97; RESP 18; TEMP 97.7; O2SAT 99
[2023-04-22 22:02] LABS: BILIRUBIN,URINE NEGATIVE (NEGATIVE); COLOR,URINE YELLOW (YELLOW); GLUCOSE,URINE 3+ (NEGATIVE); KETONES,URINE NEGATIVE (NEGATIVE); LEUKOCYTE ESTERASE ,URINE 1+ (NEGATIVE); NITRITE, URINE NEGATIVE (NEGATIVE); PH,URINE 5.5 (5.0-8.0); PROTEIN URINE NEGATIVE (NEGATIVE); UROBILINOGEN,URINE 0.2 (0.2-1.0)
[2023-04-22 22:08] LABS: BLOOD, URINE TRACE (NEGATIVE); CLARITY/URINE HAZY (CLEAR)
[2023-04-22 22:10] LABS: ALBUMIN 3.5 g/dL (3.4-4.8); CALCIUM 9.3 mg/dL (8.4-11.0); CREATININE 0.98 mg/dL (0.55-1.30); POTASSIUM 4.9 mmol/L (3.5-5.1); TOTAL BILIRUBIN 0.2 mg/dL (0.0-1.0)
[2023-04-22 22:17] LABS: BACTERIA,URINE MANY /HPF (None Seen); WBC,URINE 50-80 /HPF (0-3)
[2023-04-22 22:17] LABS: BASOPHILS % (AUTO) 0.4 % (0.0-2.0); EOSINOPHILS # (AUTO) 0.1 K/uL (0.0-0.4); EOSINOPHILS % (AUTO) 0.9 % (0.0-4.0); HEMATOCRIT 36.9 % (36-48); HEMOGLOBIN 12.3 g/dL (12.0-16.0); LYMPHOCYTES # (AUTO) 2.7 K/uL (1.0-5.5); LYMPHOCYTES % (AUTO) 28.3 % (20.5-51.5); MEAN CORPUSCULAR HEMOGLOBIN 30 pg (27-31); MEAN CORPUSCULAR HGB CONC 33 % (32-36); MEAN CORPUSCULAR VOLUME 89 fL (79.0-98.0); MONOCYTES # (AUTO) 0.7 K/uL (0.0-1.0); NEUTROPHILS # (AUTO) 6.1 K/uL (1.8-7.7); NEUTROPHILS % (AUTO) 63.4 % (40.0-70.0); PLATELET COUNT (AUTO) 296 K/uL (130-430); RED BLOOD CELL COUNT(AUTO) 4.16 MIL/uL (4.2-6.2); RED CELL DISTRIBUTION WIDTH 14.1 % (9.0-15.0); WHITE BLOOD COUNT (AUTO) 9.6 K/uL (4.8-10.8)
[2023-04-22] MEDS ORDERED: cefTRIAXone 1 GM in LIDOCAINE 1%, 20 ML MDV 2.1 ML IM ONE (22:45)
[2023-04-22] MEDS ORDERED: CIPR500T5 PO (22:51)
[2023-04-22 23:00] VITALS: BP_SYST 123; PULSE 96; RESP 18; TEMP 98.2; O2SAT 97
== END 2023-04-22 23:00 | disposition home or self-care (01) ==
LOC: SED 21:16
DX: N39.0 Urinary tract infection, site not specified (principal); N81.4 Uterovaginal prolapse, unspecified; I10 Essential (primary) hypertension; E11.9 Type 2 diabetes mellitus without complications; Z88.5 Allergy status to narcotic agent; Z79.899 Other long term (current) drug therapy
CPT/HCPCS: 99283; 80053; 81001; 83690; 85025; 87086; 36415; 96372; J0696; J2001; 81000; 81015

== ENCOUNTER 2023-08-14 22:06 | Emergency (ER) | payer MEDICARE ==
[~2023-08-14] VITALS: Ht 165.1 cm; Wt 63.5 kg
[2023-08-14 22:39] VITALS: BP_SYST 147; PULSE 86; RESP 16; TEMP 97.3; O2SAT 97
[2023-08-15] MEDS: KETOROLAC TROMETHAMINE 60 MG/2 ML VIAL IM ONE (00:16)
[2023-08-15 00:19] LABS: BILIRUBIN,URINE NEGATIVE (NEGATIVE); BLOOD, URINE NEGATIVE (NEGATIVE); COLOR,URINE YELLOW (YELLOW); GLUCOSE,URINE 3+ (NEGATIVE); KETONES,URINE NEGATIVE (NEGATIVE); NITRITE, URINE POSITIVE (NEGATIVE); PH,URINE 5.5 (5.0-8.0); PROTEIN URINE NEGATIVE (NEGATIVE); UROBILINOGEN,URINE 0.2 (0.2-1.0)
[2023-08-15 00:26] LABS: CLARITY/URINE SLIGHTLY CLOUDY (CLEAR)
[2023-08-15 00:27] LABS: LEUKOCYTE ESTERASE ,URINE 1+ (NEGATIVE)
[2023-08-15 00:28] LABS: BACTERIA,URINE MANY /HPF (None Seen); RBC,URINE 0-3 /HPF (0-3); WBC,URINE 20-50 /HPF (0-3)
[2023-08-15 00:43] VITALS: BP_SYST 147; PULSE 86; RESP 16; TEMP 97.3; O2SAT 97
== END 2023-08-14 23:50 | disposition home or self-care (01) ==
LOC: SED 22:06
DX: N39.0 Urinary tract infection, site not specified (principal); R10.9 Unspecified abdominal pain; R30.9 Painful micturition, unspecified; E11.9 Type 2 diabetes mellitus without complications; I10 Essential (primary) hypertension; Z88.5 Allergy status to narcotic agent; Z79.899 Other long term (current) drug therapy
CPT/HCPCS: 81000; 81001; 81015; 87086; 87186; 96372; 99283; J1885

== ENCOUNTER 2023-08-27 11:10 | Emergency (ER) | payer MEDICARE ==
[~2023-08-27] VITALS: Ht 165.1 cm; Wt 63.5 kg
[2023-08-27 11:13] VITALS: BP_SYST 133; PULSE 87; RESP 18; TEMP 98.3; O2SAT 98
[2023-08-27 11:44] LABS: BILIRUBIN,URINE NEGATIVE (NEGATIVE); BLOOD, URINE NEGATIVE (NEGATIVE); COLOR,URINE YELLOW (YELLOW); GLUCOSE,URINE 3+ (NEGATIVE); KETONES,URINE NEGATIVE (NEGATIVE); LEUKOCYTE ESTERASE ,URINE TRACE (NEGATIVE); NITRITE, URINE POSITIVE (NEGATIVE); PH,URINE 5.5 (5.0-8.0); PROTEIN URINE NEGATIVE (NEGATIVE); UROBILINOGEN,URINE 0.2 (0.2-1.0)
[2023-08-27 11:48] LABS: CLARITY/URINE SLIGHTLY HAZY (CLEAR)
[2023-08-27 12:15] LABS: BASOPHILS # (AUTO) 0.1 K/uL (0.0-0.2); EOSINOPHILS # (AUTO) 0.1 K/uL (0.0-0.4); EOSINOPHILS % (AUTO) 1.4 % (0.0-4.0); HEMATOCRIT 38.7 % (36-48); HEMOGLOBIN 13.3 g/dL (12.0-16.0); LYMPHOCYTES # (AUTO) 2.5 K/uL (1.0-5.5); LYMPHOCYTES % (AUTO) 37.9 % (20.5-51.5); MEAN CORPUSCULAR HEMOGLOBIN 31 pg (27-31); MEAN CORPUSCULAR HGB CONC 34 % (32-36); MEAN CORPUSCULAR VOLUME 90 fL (79.0-98.0); MONOCYTES # (AUTO) 0.4 K/uL (0.0-1.0); MONOCYTES % (AUTO) 6.1 % (1.7-9.3); NEUTROPHILS # (AUTO) 3.5 K/uL (1.8-7.7); NEUTROPHILS % (AUTO) 53.6 % (40.0-70.0); PLATELET COUNT (AUTO) 289 K/uL (130-430); RED BLOOD CELL COUNT(AUTO) 4.32 MIL/uL (4.2-6.2); RED CELL DISTRIBUTION WIDTH 14.2 % (9.0-15.0); WHITE BLOOD COUNT (AUTO) 6.6 K/uL (4.8-10.8)
[2023-08-27 12:17] LABS: BACTERIA,URINE MANY /HPF (None Seen); MUCUS,URINE 1+ /LPF (None Seen); RBC,URINE 0-3 /HPF (0-3)
[2023-08-27 12:31] LABS: CALCIUM 9.1 mg/dL (8.4-11.0); CREATININE 1.02 mg/dL (0.55-1.30); POTASSIUM 4.4 mmol/L (3.5-5.1)
[2023-08-27 12:36] LABS: ALBUMIN 3.9 g/dL (3.4-4.8); TOTAL BILIRUBIN 0.5 mg/dL (0.0-1.0); TOTAL PROTEIN, SERUM 7.7 g/dL (6.4-8.3)
[2023-08-27] MEDS ORDERED: NITR-85 PO (14:13)
[2023-08-27] MEDS: IBUPROFEN 800 MG TABLET PO ONE (14:48)
[2023-08-27] MEDS: cefTRIAXone 1 GM in LIDOCAINE 1%, 20 ML MDV 2.1 ML IM ONE (14:48)
[2023-08-27 14:57] VITALS: BP_SYST 130; PULSE 78; RESP 18; TEMP 98.2; O2SAT 98
== END 2023-08-27 15:00 | disposition home or self-care (01) ==
LOC: SED 11:10
DX: N39.0 Urinary tract infection, site not specified (principal); I10 Essential (primary) hypertension; E11.9 Type 2 diabetes mellitus without complications; E78.5 Hyperlipidemia, unspecified; Z88.5 Allergy status to narcotic agent
CPT/HCPCS: 99284; 80053; 81001; 85025; 87086; 87186; 36415; 93005; 96372; 82948; 81000; 81015; J0696; J2001